=== PATIENT | female | born 1960 | race African-American/Black ===

== ENCOUNTER 2018-05-18 23:17 | Emergency (ER) | payer MEDICARE, MEDICAID ==
[~2018-05-18] VITALS: Ht 162.6 cm; Wt 72.6 kg
[~2018-05-18 23:17] MED LIST: IBUPROFEN600 MG ORAL
[2018-05-18 23:20] VITALS: BP 130/81
--- NOTE | 2018-05-18 23:20 | NUR ---
ED Nurse Note: Seizure; pt is from home. pt stated her friend has whitness the seizure. pt denies LOC, pt did not hit her head. pt stated she did not take her anti seizure medications today due to her seizure activity. pt is alert and oriented times 4. no skin issues noted. pt memory is intact, she is able to recall what she ate for dinner last night. seizure precautions are in place, such as side lying position, o2/ suction on standby, and padded side rales.
[2018-05-19] MEDS ORDERED: Sodium Chloride 500ML 500 ML IV ONE (00:05)
[2018-05-19 01:20] VITALS: BP 135/79
[2018-05-19] MEDS ORDERED: PHENobarbital 32.4mg tab ONE (01:41)
--- NOTE | 2018-05-19 01:46 | NUR ---
ED Nurse Note: phenobarbital medication not found in ER Pyxis. had to go to [facility]/ SDU to pull medication. [facility] medication came in 3 tabs, 32.4mg each. pt offered 3 tabs to complete ordered doseage = 97.2mg.
--- NOTE | 2018-05-19 01:49 | NUR ---
ED Nurse Note: phenobarbital medication not found in ER Pyxis. had to go to [facility]/ SDU to pull medication. [facility] medication came in 3 tabs, 32.4mg each. pt offered 3 tabs to complete ordered doseage = 97.2mg. [facility] esthetician aware (neha), ER esthetician aware (Hattie), aware.
[2018-05-19 02:15] VITALS: BP 134/82
--- NOTE | 2018-05-19 02:16 | NUR ---
ED Nurse Note: PT is Dc per ERMD order. pt has left with all belongings. pt vital signs are stable. pt status, condition, labs and vitals have been reported to ERMD and charge nurse prior to DC. pt has understood DC notes, and was able to teach back DC notes. pt is alert and oriented times 4. PT ID band. pt is instructed to follow up with primary MD as soon as possible. no skin issues noted in ER. Pt is able to ambulate with steady gait. pt stated she has a family member, her brother that is going to pick her up at discharge. brother was contacted, confirmed machine operator picker.
[2018-05-19 02:18] VITALS: BP 134/82
--- NOTE | 2018-05-19 04:06 | Emergency Room Report ---
History of Present Illness General Chief Complaint: Seizure Source: Patient, EMS Present Illness HPI 58-year-old female presents ED for evaluation. Patient presents status post seizure. Witnessed by roommate. Patient was in her bed. No head injury. Patient is awake alert oriented 3 upon arrival. Denies any headache. Denies any weakness. States she has history of seizures and takes phenobarbital. States she missed her dose today. States she is otherwise compliant with her medications. Denies any drug use or alcohol use. No other aggravating relieving factors. Denies any other associated symptoms Allergies: Coded Allergies: PENICILLINS (Verified Allergy, Unknown, 05/19/18) Uncoded Allergies: codein (Allergy, Unknown, 05/19/18) Patient History Past Medical History: CVA/TIA, seizures Past Surgical History: none Pertinent Family History: none Social History: Denies: smoking, alcohol use, drug use Now: No Immunizations: UTD Reviewed Nursing Documentation: PMH: Agreed; PSxH: Agreed Nursing Documentation-PMH Hx Hypertension: Yes Hx Cerebrovascular Accident: Yes - Left sided weakness Hx Seizures: Yes Review of Systems All Other Systems: negative except mentioned in HPI Physical Exam Vital Signs Date Time Temp Pulse Resp B/P (MAP) Pulse Ox O2 Delivery O2 Flow Rate FiO2 05/18/18 23:20 98.1 90 18 130/81 Room Air 99 05/18/18 23:25 100 Sp02 EP Interpretation: reviewed, normal General Appearance: no apparent distress, alert, GCS 15, non-toxic Head: normocephalic, atraumatic Eyes: bilateral eye normal inspection, bilateral eye PERRL ENT: hearing grossly normal, normal pharynx, no angioedema, normal voice Neck: full range of motion, supple/symm/no masses Respiratory: chest non-tender, lungs clear, normal breath sounds, speaking full sentences Cardiovascular #1: regular rate, rhythm, no edema Cardiovascular #2: 2+ carotid (R), 2+ carotid (L), 2+ radial (R), 2+ radial (L) , 2+ dorsalis pedis (R), 2+ dorsalis pedis (L) Gastrointestinal: normal bowel sounds, non tender, soft, non-distended, no guarding, no rebound Rectal: deferred Genitourinary: normal inspection, no CVA tenderness Musculoskeletal: back normal, gait/station normal, normal range of motion, non- tender Neurologic: alert, oriented x3, responsive, motor strength/tone normal, sensory intact, speech normal Psychiatric: judgement/insight normal, memory normal, mood/affect normal, no suicidal/homicidal ideation Reflexes: 3+ bicep (R), 3+ bicep (L), 3+ tricep (R), 3+ tricep (L), 3+ knee (R) , 3+ knee (L) Skin: normal color, no rash, warm/dry, well hydrated Lymphatic: no adenopathy Medical Decision Making Diagnostic Impression: Primary Impression: Seizure disorder ER Course Hospital Course 58-year-old F presents to ED status post seizure. Missed her evening dose of medication Differential diagnosis includes- breakthrough seizure, alcohol abuse, noncompliance with medication Clinical course Patient placed on stretcher. Initial history, physical exam reveals female in no acute distress. Patient is awake alert oriented 3. No focal neurological deficits. Vital stable. No complaints There is no head injury. I see no reason for CT imaging. Patient given dose of phenobarbital here. Patient observed walking in ED. No focal neurological deficits. Safe for discharge. States she has her medication at home. States she has PMD follow-up Diagnosis - seizure disorder stable and discharged to home. Followup with PMD. Return to ED if symptoms recur or worsen Last Vital Signs Date Time Temp Pulse Resp B/P (MAP) Pulse Ox O2 Delivery O2 Flow Rate FiO2 05/19/18 02:18 98.1 88 18 134/82 100 Room Air 99 Status: improved Disposition: HOME, SELF-CARE Condition: Stable Referrals: [facility],REFERRING (PCP) Patient Instructions: Seizure, Adult Michael Morataya MD May 19, 2018 04:06
== END 2018-05-19 02:15 | disposition home or self-care (01) ==
LOC: EDBD 23:17 → EMR 23:59
DX: G40.909 Epilepsy, unspecified, not intractable, without status epilepticus (principal); I10 Essential (primary) hypertension; I69.354 Hemiplegia and hemiparesis following cerebral infarction affecting left non-dominant side; Z88.0 Allergy status to penicillin; Z79.899 Other long term (current) drug therapy
CPT/HCPCS: 99284

== ENCOUNTER 2019-02-14 23:30 | Emergency (ER) | payer MEDICARE, MEDICAID ==
[~2019-02-14] VITALS: Ht 167.6 cm; Wt 74.8 kg
[~2019-02-14 23:30] MED LIST changes: +PHENOBARBITAL64.8 MG PO
[2019-02-14 23:40] VITALS: BP 168/92
--- NOTE | 2019-02-14 23:40 | NUR ---
ER Nurse Note: Pt brought in by husam Galindo from home c/o seizure. Per EMS, pt had a witnessed seizure for 60 seconds. Per EMS, no oral trauma, no incontenice. Pt stated she forgot to take her meds tonight and had a seizure. Pt is complient with meds. Seizure pads applied, bed in lowest position, O2 at bedside if needed. Will conitnue to [facility].
--- NOTE | 2019-02-14 23:52 | Emergency Room Report ---
History of Present Illness General Chief Complaint: Seizure Source: Patient, Medical Record, EMS Present Illness HPI Is a 58-year-old female with history of CVA with left-sided weakness. She also has a history of seizure for which she takes phenobarbital. She presents with a chief complaint of seizure. Tonic-clonic in nature. Lasted for less than a minute. Witnessed by her friend. No incontinence of bowel or urine. No or trauma. She was slightly postictal per EMS. But now, she is back to baseline. She said that she has not taken her night dose of phenobarbital. Denies any other complaint. No trauma. Multiple episodes like this in the past. Allergies: Coded Allergies: PENICILLINS (Verified Allergy, Unknown, 05/19/18) Uncoded Allergies: codein (Allergy, Unknown, 05/19/18) Patient History Past Medical History: see triage record, old chart reviewed, CVA/TIA, seizures Past Surgical History: other Pertinent Family History: none Social History: Denies: smoking Now: No Immunizations: other Reviewed Nursing Documentation: PMH: Agreed; PSxH: Agreed Nursing Documentation-PMH Hx Hypertension: Yes Hx Cerebrovascular Accident: Yes - Left sided weakness Hx Seizures: Yes Review of Systems Eye: Denies: eye pain, blurred vision ENT: Denies: ear pain, nose congestion, throat swelling Respiratory: Denies: cough, shortness of breath Cardiovascular: Denies: chest pain, palpitations Gastrointestinal: Denies: abdominal pain, diarrhea, nausea, vomiting Musculoskeletal: Denies: back pain, joint pain Skin: Denies: rash Neurological: Denies: headache, numbness Endocrine: Denies: increased thirst, increased urine Hematologic/Lymphatic: Denies: easy bruising All Other Systems: negative except mentioned in HPI Physical Exam Vital Signs Date Time Temp Pulse Resp B/P (MAP) Pulse Ox O2 Delivery O2 Flow Rate FiO2 02/14/19 23:32 98.4 114 18 168/92 (117) 98 Room Air Vitals with tachycardia Sp02 EP Interpretation: reviewed, normal General Appearance: well appearing, no apparent distress, alert Head: normocephalic, atraumatic Eyes: bilateral eye PERRL, bilateral eye EOMI ENT: hearing grossly normal, normal pharynx Neck: full range of motion, supple, no meningismus Respiratory: chest non-tender, lungs clear, normal breath sounds Cardiovascular #1: regular rate, rhythm, no murmur, other - Rate 100 Gastrointestinal: normal bowel sounds, non tender, no mass, no organomegaly, no bruit, non-distended Musculoskeletal: back normal, gait/station normal, normal range of motion Neurologic: alert, oriented x3, other - Left sided weakness Psychiatric: mood/affect normal Medical Decision Making Diagnostic Impression: Primary Impression: Epileptic seizure, generalized ER Course She with a breakthrough seizure. I gave her a dose of phenobarbital IM here. Last Vital Signs Date Time Temp Pulse Resp B/P (MAP) Pulse Ox O2 Delivery O2 Flow Rate FiO2 02/14/19 23:32 98.4 114 18 168/92 (117) 98 Room Air Status: improved Disposition: HOME, SELF-CARE Condition: Stable Patient Instructions: Seizure, Adult Additional Instructions: Take your phenobarbital. Follow-up with your doctor in 7 days. Return if worse. Junito Copeland MD Feb 14, 2019 23:52
--- NOTE | 2019-02-15 00:25 | NUR ---
ER Nurse Note: Spoke with pt's brother, Milagros; he stated he will come and pick pt up. Pt stable, all orders completed. No seizures on shift. Pt VSS, RA, resting comfortably. Will DC when brother's arrives.
[2019-02-15 01:05] VITALS: BP 123/86
--- NOTE | 2019-02-15 01:05 | NUR ---
ER Nurse Note: Pt seen, treated, medically cleared for discharge by ERMD. Discharge instuctions given with repeat verbalization by pt. Emphasized to follow up with primay care provider. All orders completed per ERMD orders. Pt a&ox4, VSS, no signs of distress. ID band removed. All questions answered per pt's questions. Pt's brother at pt's side. Pt left with all belongings with appropriate clothing, left with own transportation, ambulatory.
== END 2019-02-15 01:05 | disposition home or self-care (01) ==
LOC: EDBD 23:30 → EMR 23:52
DX: G40.409 Other generalized epilepsy and epileptic syndromes, not intractable, without status epilepticus (principal); I10 Essential (primary) hypertension; I69.854 Hemiplegia and hemiparesis following other cerebrovascular disease affecting left non-dominant side; Z88.0 Allergy status to penicillin; Z88.6 Allergy status to analgesic agent
CPT/HCPCS: 96372; 99283; J2560

== ENCOUNTER 2019-02-15 02:52 | Emergency (ER) | payer MEDICARE, MEDICAID ==
[~2019-02-15] VITALS: Ht 167.6 cm; Wt 74.8 kg
[2019-02-15] MEDS ORDERED: levETIRAcetam 1,000mg/NS100ml 100 ML IVPB ONE (03:00)
--- NOTE | 2019-02-15 03:00 | Emergency Room Report ---
History of Present Illness General Chief Complaint: Seizure Source: Patient, Medical Record Present Illness HPI This is a 58-year-old female with a history of CVA with left-sided weakness. She also has a history of seizure for which she takes she was just here earlier today and was discharged home. She was sleeping on the couch when she had a tonic-clonic seizure activity witnessed by her roommate. Lasted less than a minute. Per EMS she was slightly postictal. Now back to baseline. No oral trauma. No incontinence of bowel or urine. Denies any other complaint. Allergies: Coded Allergies: CODEINE (Unverified Allergy, Unknown, 02/15/19) PENICILLINS (Verified Allergy, Unknown, 05/19/18) Patient History Past Medical History: see triage record, old chart reviewed, CVA/TIA, seizures Past Surgical History: none Pertinent Family History: none Social History: Denies: smoking Now: No Immunizations: other Reviewed Nursing Documentation: PMH: Agreed; PSxH: Agreed Nursing Documentation-PMH Past Medical History: No History, Except For Hx Hypertension: Yes Hx Cerebrovascular Accident: Yes - Left sided weakness Hx Seizures: Yes Review of Systems Eye: Denies: eye pain, blurred vision ENT: Denies: ear pain, nose congestion, throat swelling Respiratory: Denies: cough, shortness of breath Cardiovascular: Denies: chest pain, palpitations Gastrointestinal: Denies: abdominal pain, diarrhea, nausea, vomiting Musculoskeletal: Denies: back pain, joint pain Skin: Denies: rash Neurological: Denies: headache, numbness Endocrine: Denies: increased thirst, increased urine Hematologic/Lymphatic: Denies: easy bruising All Other Systems: negative except mentioned in HPI Physical Exam Vital Signs Date Time Temp Pulse Resp B/P (MAP) Pulse Ox O2 Delivery O2 Flow Rate FiO2 02/15/19 02:52 98.4 115 18 163/99 (120) 99 Room Air Vitals with tachycardia and high blood pressure Sp02 EP Interpretation: reviewed, normal General Appearance: well appearing, no apparent distress, alert Head: normocephalic, atraumatic Eyes: bilateral eye PERRL, bilateral eye EOMI ENT: hearing grossly normal, normal pharynx Neck: full range of motion, supple, no meningismus Respiratory: chest non-tender, lungs clear, normal breath sounds Cardiovascular #1: regular rate, rhythm, no murmur Gastrointestinal: normal bowel sounds, non tender, no mass, no organomegaly, no bruit, non-distended Musculoskeletal: back normal, gait/station normal, normal range of motion Neurologic: other - Left-sided hemiplegia Psychiatric: mood/affect normal Medical Decision Making Diagnostic Impression: Primary Impression: Epileptic seizure, generalized ER Course Patient presents with breakthrough seizure. Her phenobarbital level was subtherapeutic. Postictal here. Labs unremarkable. Patient was on Dilantin before but was switched to phenobarbital. She has been on this for years. Gave her a dose of Keppra here but she does not want to switch phenobarbital. She is been seizure-free here. Will discharge home in the morning. Last Vital Signs Date Time Temp Pulse Resp B/P (MAP) Pulse Ox O2 Delivery O2 Flow Rate FiO2 02/15/19 02:52 98.4 115 18 163/99 (120) 99 Room Air Status: improved Disposition: HOME, SELF-CARE Condition: Stable Patient Instructions: Seizure, Adult Additional Instructions: Take your seizure medication. Follow-up with your doctor in a week. Return if worse. Junito Copeland MD Feb 15, 2019 03:00
--- NOTE | 2019-02-15 03:15 | NUR ---
ED Nurse Note: Patient in bed 1. Rerturned following seizure lasting one minute witnessed by neighbour as per report from paramedics.
[2019-02-15 04:23] LABS: EOSINOPHILS % (AUTO) 0.6 % (0.0-3.0); HEMATOCRIT 39.7 % (37.0-47.0); HEMOGLOBIN 13.1 G/DL (12.0-16.0); LYMPHOCYTES % (AUTO) 12.1 % (20.0-45.0); MEAN CORPUSCULAR VOLUME 94 FL (80-99); MONOCYTES % (AUTO) 8.5 % (1.0-10.0); NEUTROPHILS % (AUTO) 77.8 % (45.0-75.0); PLATELET COUNT 176 K/UL (150-450); RED BLOOD COUNT 4.23 M/UL (4.20-5.40); RED CELL DISTRIBUTION WIDTH 12.6 % (11.6-14.8); WHITE BLOOD COUNT 7.5 K/UL (4.8-10.8)
[2019-02-15 04:27] LABS: APPEARANCE,URINE CLEAR; BILIRUBIN, URINE NEGATIVE (NEGATIVE); COLOR,URINE PALE YELLOW; GLUCOSE, URINE (UA) NEGATIVE (NEGATIVE); KETONES,URINE 1+ (NEGATIVE); LEUKOCYTE ESTERASE ,URINE NEGATIVE (NEGATIVE); NITRITE,URINE NEGATIVE (NEGATIVE); PH,URINE 6 (4.5-8.0); PROTEIN,URINE 2+ (NEGATIVE); UROBILINOGEN,URINE NORMAL MG/DL (0.0-1.0)
[2019-02-15 04:29] VITALS: BP 145/97
[2019-02-15 04:32] LABS: ANION GAP 10 mmol/L (5-15); BLOOD UREA NITROGEN 15 mg/dL (7-18); CALCIUM 9.3 MG/DL (8.5-10.1); CARBON DIOXIDE 23 MMOL/L (21-32); CHLORIDE 106 MMOL/L (98-107); CREATININE 1.2 MG/DL (0.55-1.30); POTASSIUM 4.5 MMOL/L (3.5-5.1); SODIUM 139 MMOL/L (136-145)
--- NOTE | 2019-02-15 04:40 | NUR ---
ED Nurse Note: Anti siezure medications given as prescribed. A&O x4. IV access obtained by in right jugular vein via USS. Fall precautions, anti slip and yellow wrist band. Patient voided in bed bellamy, sample sent to lab. Await lab results and further orders. IV fluids as prescribed.
--- NOTE | 2019-02-15 04:47 | NUR ---
ED Nurse Note: Patient allergy band placed due to allergy to codiene. Patuient for observation at present in ER.
--- NOTE | 2019-02-15 04:48 | NUR ---
ED Nurse Note: Phenobarbitol level on ower end of normal - however within therapaeutic range.
[2019-02-15 06:30] VITALS: BP 135/88
--- NOTE | 2019-02-15 06:30 | NUR ---
ER DISCHARGE NOTE: Patient is cleared to be discharged per ERMD, pt is aox4, on room air, with stable vital signs. pt was given dc instructions, pt was able to verbalize understanding, pt id band and iv site removed without complications. pt is able to ambulate. pt took all belongings. Patients brother contacted patients brother eusebio collect patient. Patient assisted to waiting area to await pick remover.
== END 2019-02-15 06:30 | disposition home or self-care (01) ==
LOC: EDBD 02:52 → EMR 03:03
DX: G40.409 Other generalized epilepsy and epileptic syndromes, not intractable, without status epilepticus (principal); I10 Essential (primary) hypertension; I69.854 Hemiplegia and hemiparesis following other cerebrovascular disease affecting left non-dominant side; Z88.0 Allergy status to penicillin; Z88.6 Allergy status to analgesic agent
CPT/HCPCS: 36415; 80048; 80184; 81001; 85025; 96361; 96374; 99284; J1953

== ENCOUNTER 2019-03-21 10:42 | Emergency (ER) | payer MEDICARE, MEDICAID ==
[~2019-03-21] VITALS: Ht 167.6 cm; Wt 72.6 kg
[~2019-03-21 10:42] MED LIST changes: +PHENOBARBITAL30 MG ORAL
--- NOTE | 2019-03-21 10:50 | NUR ---
ED Nurse Note: pt with difficult iv start and labs, unable to obtain and md aware. seizure precautions in place and pt onto library monitor.
[2019-03-21 10:57] VITALS: BP 89/70
[2019-03-21] MEDS ORDERED: LORazepam Inj 2mg/ml 1ml IV ONE (11:00)
--- NOTE | 2019-03-21 11:25 | NUR ---
ED Nurse Note: attemtpting to place ext jugular iv site as pt is difficult iv start and unable to obtain labs. pt remains without seizure activity.
--- NOTE | 2019-03-21 11:30 | NUR ---
ED Nurse Note: md able to place left ext jugular without complications, pt tolerates well. labs obtained
--- NOTE | 2019-03-21 11:31 | Emergency Room Report ---
History of Present Illness General Chief Complaint: Seizure Source: Patient, EMS Present Illness HPI Patient presents post witnessed tonic-clonic seizure. Transported by EMS. The patient is supposed be taking phenobarbital. She is unclear whether she is been able to take the medication. She denies any head trauma trauma recently. The patient was seen here June 2008. Medical decision makin-year-old M presents to ED status post seizure. Differential diagnosis includes- breakthrough seizure, alcohol abuse, noncompliance with medication Clinical course Patient placed on stretcher. After initial history, physical exam reveals middle-aged female in no acute distress. Patient has a facial droop and weakness which is unchanged. Patient initially postictal but is now more awake alert oriented 3 Patient is difficult IV access and declines IV access after multiple attempts. Patient given by mouth dose phenobarbital here Patient observed on security monitor. No additional seizure activity. Vital stable. Is now awake alert oriented 3. Safe for discharge and close outpatient follow-up. She has her medications at home. States she has a PMD Diagnosis - seizure stable and discharged to home. Followup with PMD. Return to ED if symptoms recur or worsen The patient was seen here February 14 for seizure. This is the medical decision making: She with a breakthrough seizure. I gave her a dose of phenobarbital IM here. Patient was seen February 15 for seizure. This is the medical decision making. Patient presents with breakthrough seizure. Her phenobarbital level was subtherapeutic. Postictal here. Labs unremarkable. Patient was on Dilantin before but was switched to phenobarbital. She has been on this for years. Gave her a dose of Keppra here but she does not want to switch phenobarbital. She is been seizure-free here. Will discharge home in the morning. The patient is a little bit confused and unable to answer most review of systems questions. She denies chest pain and abdominal pain at this time. No nausea, vomiting or diarrhea. Patient has a history of prior CVA with left-sided weakness. The patient has a history of myocardial infarction. Allergies: Coded Allergies: CODEINE (Unverified Allergy, Unknown, 02/15/19) PENICILLINS (Verified Allergy, Unknown, 05/19/18) Patient History Limited by: medical condition Past Medical History: see triage record, old chart reviewed Social History Narrative Lives by herself -brother checks on her Last Menstrual Period: unk Reviewed Nursing Documentation: PMH: Agreed; PSxH: Agreed Nursing Documentation-PMH Past Medical History: No History, Except For Hx Hypertension: Yes Hx Cerebrovascular Accident: Yes - Left sided weakness Hx Seizures: Yes Review of Systems All Other Systems: negative except mentioned in HPI Physical Exam Vital Signs Date Time Temp Pulse Resp B/P (MAP) Pulse Ox O2 Delivery O2 Flow Rate FiO2 03/21/19 10:38 98.2 118 18 156/88 (110) 98 Room Air 03/21/19 10:57 98 Sp02 EP Interpretation: reviewed, normal General Appearance: well appearing, no apparent distress, alert, non-toxic Head: normocephalic Eyes: bilateral eye normal inspection, bilateral eye PERRL, bilateral eye EOMI ENT: moist mucus membranes Neck: supple Respiratory: lungs clear, normal breath sounds Cardiovascular #1: regular rate, rhythm Cardiovascular #2: 2+ radial (R) Gastrointestinal: normal inspection, normal bowel sounds, non tender, no mass, non-distended Musculoskeletal: back normal, normal range of motion, other Neurologic: alert, plastics supervisor III-XII nml as tested, DTRs symmetric, sensory intact, cerebellar normal, speech normal, motor weakness - Left upper extremity, other - Able to ambulate, oriented - X1 Psychiatric: depressed affect, other - Possibly slightly postictal Skin: no rash Medical Decision Making Diagnostic Impression: Primary Impression: Seizure Additional Impressions: Noncompliance with medication regimen Status post stroke ER Course Patient presents after witnessed tonic-clonic seizure. Differential is noncompliance, breakthrough seizures, electrolyte imbalance amongst others. She has a nonfocal neurologic exam at this time. The patient will be evaluated with EKG, chest x-ray and labs. CT of the head is not indicated based on her physical exam. The patient will be given a dose of Ativan and also a dose of phenobarbital. EJ started by me EKG with normal sinus rhythm and a normal EKG rate of 92. Chest x-ray no infiltrates. Labs most significant for a phenobarbital level of 2.2. No more seizure activity. However the patient is somewhat unclear on what she needs to do to continue taking her phenobarbital. She lives by herself and her brother comes in to see her every once in a while. Because of this the patient is admitted for observation and evaluation by social science professor. It is possible that she has denial due to this prior CVA involving the right brain. Discussed with Dr. Robins at [facility] who accepts the patient for obs tele. Patient reluctant to be transferred. Attempting to go home. Able to ambulate. Not understanding risks and therefore needs to be transferred. Finally agreed to be transferred. Laboratory Tests Test 03/21/19 11:37 03/21/19 13:10 White Blood Count 7.0 K/UL (4.8-10.8) Red Blood Count 4.11 M/UL (4.20-5.40) L Hemoglobin 12.4 G/DL (12.0-16.0) Hematocrit 38.2 % (37.0-47.0) Mean Corpuscular Volume 93 FL (80-99) Mean Corpuscular Hemoglobin 30.1 PG (27.0-31.0) Mean Corpuscular Hemoglobin Concent 32.4 G/DL (32.0-36.0) Red Cell Distribution Width 12.7 % (11.6-14.8) Platelet Count 141 K/UL (150-450) L Mean Platelet Volume 7.7 FL (6.5-10.1) Neutrophils (%) (Auto) 75.7 % (45.0-75.0) H Lymphocytes (%) (Auto) 11.7 % (20.0-45.0) L Monocytes (%) (Auto) 9.9 % (1.0-10.0) Eosinophils (%) (Auto) 1.6 % (0.0-3.0) Basophils (%) (Auto) 1.1 % (0.0-2.0) Sodium Level 143 MMOL/L (136-145) Potassium Level 5.1 MMOL/L (3.5-5.1) Chloride Level 108 MMOL/L (98-107) H Carbon Dioxide Level 23 MMOL/L (21-32) Anion Gap 12 mmol/L (5-15) Blood Urea Nitrogen 15 mg/dL (7-18) Creatinine 1.1 MG/DL (0.55-1.30) Estimate Glomerular Filtration Rate > 60 mL/min (>60) Glucose Level 101 MG/DL (74-106) Calcium Level 8.9 MG/DL (8.5-10.1) Total Bilirubin 0.4 MG/DL (0.2-1.0) Aspartate Amino Transferase (AST) 43 U/L (15-37) H Alanine Aminotransferase (ALT) 24 U/L (12-78) Alkaline Phosphatase 129 U/L (46-116) H Total Creatine Kinase 383 U/L (26-308) H Total Protein 7.7 G/DL (6.4-8.2) Albumin 3.5 G/DL (3.4-5.0) Globulin 4.2 g/dL Albumin/Globulin Ratio 0.8 (1.0-2.7) L Phenobarbital Level 2.2 ug/mL (15-40) L Serum Alcohol < 3 mg/dL Urine Color Pale yellow Urine Appearance Clear Urine pH 6 (4.5-8.0) Urine Specific Gage 1.015 (1.005-1.035) Urine Protein 2+ (NEGATIVE) H Urine Glucose (UA) Negative (NEGATIVE) Urine Ketones Negative (NEGATIVE) Urine Blood 5+ (NEGATIVE) H Urine Nitrite Negative (NEGATIVE) Urine Bilirubin Negative (NEGATIVE) Urine Urobilinogen Normal MG/DL (0.0-1.0) Urine Leukocyte Esterase 1+ (NEGATIVE) H Urine RBC 30-40 /HPF (0 - 2) H Urine WBC 2-4 /HPF (0 - 2) Urine Squamous Epithelial Cells Few /LPF (NONE/OCC) Urine Bacteria Occasional /HPF (NONE) Urine Opiates Screen Negative (NEGATIVE) Urine Barbiturates Screen Positive (NEGATIVE) H Phencyclidine (PCP) Screen Negative (NEGATIVE) Urine Amphetamines Screen Negative (NEGATIVE) Urine Benzodiazepines Screen Negative (NEGATIVE) Urine Cocaine Screen Negative (NEGATIVE) Urine Marijuana (THC) Screen Negative (NEGATIVE) EKG Diagnostic Results Rate: normal Rhythm: NSR ST Segments: no acute changes Rhythm Strip Diag. Results EP Interpretation: yes Rhythm: NSR, no PVC's, no ectopy Chest X-Ray Diagnostic Results Chest X-Ray Diagnostic Results : Chest X-Ray Ordered: Yes # of Views/Limited/Complete: 1 View Indication: Other EP Interpretation: Yes Interpretation: no consolidation, no effusion, no pneumothorax Impression: No acute disease Electronically Signed by: Electronically signed by Zay Miller MD Last Vital Signs Date Time Temp Pulse Resp B/P (MAP) Pulse Ox O2 Delivery O2 Flow Rate FiO2 03/21/19 15:36 79 18 137/91 100 Room Air 03/21/19 15:28 98.2 03/21/19 10:57 98 Status: improved Disposition: XFER SHT-TRM HOSP Condition: Serious Zay Miller MD Mar 21, 2019 11:31
[2019-03-21 11:45] VITALS: BP 136/90
[2019-03-21 11:51] LABS: BASOPHILS % (AUTO) 1.1 % (0.0-2.0); EOSINOPHILS % (AUTO) 1.6 % (0.0-3.0); HEMATOCRIT 38.2 % (37.0-47.0); HEMOGLOBIN 12.4 G/DL (12.0-16.0); LYMPHOCYTES % (AUTO) 11.7 % (20.0-45.0); MEAN CORPUSCULAR VOLUME 93 FL (80-99); MONOCYTES % (AUTO) 9.9 % (1.0-10.0); NEUTROPHILS % (AUTO) 75.7 % (45.0-75.0); PLATELET COUNT 141 K/UL (150-450); RED BLOOD COUNT 4.11 M/UL (4.20-5.40); RED CELL DISTRIBUTION WIDTH 12.7 % (11.6-14.8)
[2019-03-21 12:14] LABS: ANION GAP 12 mmol/L (5-15); BLOOD UREA NITROGEN 15 mg/dL (7-18); CALCIUM 8.9 MG/DL (8.5-10.1); CARBON DIOXIDE 23 MMOL/L (21-32); CHLORIDE 108 MMOL/L (98-107); CREATININE 1.1 MG/DL (0.55-1.30); POTASSIUM 5.1 MMOL/L (3.5-5.1); SODIUM 143 MMOL/L (136-145)
[2019-03-21 12:21] LABS: ALANINE AMINOTRANSFERASE 24 U/L (12-78); ALBUMIN 3.5 G/DL (3.4-5.0); ALBUMIN/GLOBULIN RATIO 0.8 (1.0-2.7); ALKALINE PHOSPHATASE 129 U/L (46-116); ASPARTATE AMINO TRANSFERASE 43 U/L (15-37); BILIRUBIN,TOTAL 0.4 MG/DL (0.2-1.0); CREATINE KINASE 383 U/L (26-308)
--- NOTE | 2019-03-21 12:28 | NUR ---
ED Nurse Note: pt remains without seizure activitiy, aware to obtain a urine sample when able.
[2019-03-21 12:29] VITALS: BP 143/84
--- NOTE | 2019-03-21 13:03 | Diagnostic Imaging Report ---
Indication: Dyspnea Comparison: None A single view chest radiograph was obtained. Findings: There is some pulmonary vascular prominence with the mild cardiomegaly present. Interstitial densities are prominent. Bones are osteopenic. IMPRESSION: Mild pulmonary vascular congestion
--- NOTE | 2019-03-21 13:17 | NUR ---
ED Nurse Note: pt voiding on bedpan urine sent. pt remains a/ox4 when awake. pt resting well.
[2019-03-21 13:29] LABS: APPEARANCE,URINE CLEAR; BILIRUBIN, URINE NEGATIVE (NEGATIVE); COLOR,URINE PALE YELLOW; GLUCOSE, URINE (UA) NEGATIVE (NEGATIVE); KETONES,URINE NEGATIVE (NEGATIVE); LEUKOCYTE ESTERASE ,URINE 1+ (NEGATIVE); NITRITE,URINE NEGATIVE (NEGATIVE); PH,URINE 6 (4.5-8.0); PROTEIN,URINE 2+ (NEGATIVE); UROBILINOGEN,URINE NORMAL MG/DL (0.0-1.0)
[2019-03-21 14:30] VITALS: BP 125/73
--- NOTE | 2019-03-21 15:00 | NUR ---
ED Nurse Note: pt tolerating getting OOB to [facility] via wheeelchair with rn assist. pt remains without seizures in ed. a/ox4 pt aware and agrees to plan for transfer for hospital admission.
--- NOTE | 2019-03-21 15:27 | NUR ---
REPORT GIVEN TO ANDREA HOPSON AT [facility] . PATIENT WILL BE TRANSFERD VIA [facility] VIA [facility]
[2019-03-21 15:36] VITALS: BP 137/91
--- NOTE | 2019-03-21 15:37 | NUR ---
ED Nurse Note: pt attempting to leave ed but reconsiders and agrees to continued transfer plan. pt remains a/ox4. vss.
== END 2019-03-21 16:00 | disposition short-term general hospital (02) ==
LOC: EDBD 10:42 → EMR 13:40
DX: G40.909 Epilepsy, unspecified, not intractable, without status epilepticus (principal); Z91.14 Patient's other noncompliance with medication regimen; G81.94 Hemiplegia, unspecified affecting left nondominant side; Z88.6 Allergy status to analgesic agent; Z88.0 Allergy status to penicillin; I10 Essential (primary) hypertension
CPT/HCPCS: 36415; 71045; 80053; 80184; 80307; 81003; 82550; 85025; 93005; 96361; 96374; 96375; 99285; G0480; J2560